=== PATIENT | male | born 1945 | race Caucasian/White ===

== ENCOUNTER 2016-07-19 09:34 | Emergency (ER) | payer OTHER, BC ==
[~2016-07-19] VITALS: Ht 182.9 cm; Wt 100.0 kg
[~2016-07-19 09:34] MED LIST: BENICAR40 MG PO; CRESTOR5 MG PO; ESOMEPRAZOLE MA40 MG PO; FLONASE16 G1 BOTH NARES; LO-DOSE ASPIRIN81 M1 PO; TOVIAZ8 MG PO
[2016-07-19] MEDS ORDERED: MEDROL DOSEPAK4 MG PO (14:20)
[2016-07-19] MEDS ORDERED: PERCOCET 5/31 TABLET PO (14:20)
[2016-07-19] MEDS ORDERED: MOTRIN600 MG PO (14:20)
[2016-07-19] MEDS ORDERED: ZANTAC300 MG PO (14:50)
[2016-07-19] MEDS ORDERED: CLARITIN10 MG PO (14:51)
[2016-07-19 14:57] VITALS: BP 139/89
== END 2016-07-19 15:01 | disposition home or self-care (01) ==
LOC: EME → EDBD 09:34 → EME 09:34
DX: M51.36 Other intervertebral disc degeneration, lumbar region (principal); E78.5 Hyperlipidemia, unspecified; I10 Essential (primary) hypertension; K21.9 Gastro-esophageal reflux disease without esophagitis; Z79.82 Long term (current) use of aspirin
CPT/HCPCS: 72131; 99281; 99285; J1100; J1885; J3010; J3360